=== PATIENT | male | born 1980 | race Caucasian/White ===

== ENCOUNTER 2024-10-23 07:31 | Observation (INO) ==
--- NOTE | 2024-09-24 13:32 | PAT Medication Instructions ---
Medication Instructions Date of Service September 24, 2024 Home Medications multivitamin 1 tab PO DAILY turmeric 400 mg capsule 400 mg PO DAILY PRN STOP taking 2 weeks before surgery (or as soon as possible if surgery is within 2 weeks) turmeric 400 mg capsule 400 mg PO DAILY PRN DO NOT take the morning of surgery multivitamin 1 tab PO DAILY Other Notes NOTHING TO EAT OR DRINK AFTER MIDNIGHT. If you have any questions please call us at [phone] or [phone] or [phone] or [phone]
--- NOTE | 2024-09-30 11:11 | Anesthesiology Consultation ---
Date of Service September 30, 2024 Assessment & Plan (1) Encounter for pre-operative examination: Chart Review Chart Review: Acceptable Risk for Surgery and Patient seen in Pre Admission Testing Pt currently scheduled as 23 hours observation. If surgeon decides to change patient to Same Day Joint, patient would be acceptable risk for BRIANNA, pending patient is motivated, has good support and surgeon's office completes Same Day Joint Program preop requirements. Per PAT appt on 09/30/24, no recent illness/disease exposures, illness related symptoms, or recent illness/disease positive tests. Will leave to surgeon's discretion if preop Covid testing needed Teaching & Discussion Pre-Anesthesia Teaching/Discussion Notes: Instructed NPO after midnight before surgery,except medications with 15 cc of water. Medication instructions provided according to the PAT guidelines. History Surgery Operation Date: 10/23/24 10:00 Proposed Procedures p Left Anterior Total Hip Arthroplasty - Santi Caballero DO Height/Weight Height: 6 ft 2 in Weight: 123.3 kg Allergies Allergy/AdvReac Type Severity Reaction Status Date / Time codeine Allergy Mild Vomiting Verified 09/23/24 13:16 Medications Home Medications Medication Instructions Recorded Confirmed Last Taken multivitamin 1 tab PO DAILY 09/23/24 09/23/24 Unknown turmeric 400 mg capsule 400 mg PO DAILY PRN Inflammation 09/23/24 09/23/24 Unknown Past Medical History Medical History Bilateral hip joint arthritis History of pericarditis 2005, had "walking pneumonia" admitted to [facility], observed, no intervention no issues since - no specialists needed; no repeat ECHO needed per patient Exercise / Class Metabolic Activity II 4-5 Yardwork/Stairs/Walk up hill (one flight of stairs- no chest pain or SOB ) Past Surgical History Surgical History Hx of adenoidectomy (1987) Hx of wisdom tooth extraction Past Anesthesia History No Hx of Anesthesia Complications and No Family Hx of Anesthesia Complications History of PONV No Hx of Motion Sickness and History of PONV (with wisdom teeth extraction (possibly due to codeine)) Social History Smoking Status: Former smoker Do You Dip or Chew Tobacco: No Smoking End Date: quit 15 years ago Hx Alcohol Use: Yes alcohol intake frequency: a few times a week Hx Substance Use: No substance use type: does not use Review of Systems - Hx of snoring- no witnessed apnea- no hx of sleep study Patient denies chest pain, shortness of breath, dyspnea on exertion, reflux, cough, wheezing, palpitations. No hx of seizures, stroke, MA. No hx of blood clots or blood transfusions Physical Exam Vital Signs VITALS BP 106/71 P 75 TEMP 98.5 SP02 98% RESP 16 Constitutional no acute distress ENMT Mouth: no TMJ clicking Thyromental Distance: > or= 3.5 Finger Breadths (3.5) Mallampati Class: III Neck neck extension not limited Respiratory normal respiratory effort; no respiratory distress Auscultation: lungs clear to auscultation bilaterally; no wheezes Cardiovascular Rate/Rhythm: regular rate and regular rhythm Heart Sounds: no murmur Vessels: no carotid bruit Musculoskeletal Spine: no pain with cervical ROM Extremities: extremities normal to inspection Psychiatric Orientation: alert Lab Results Anesthesia Preop Results Results Anesthesia Widget: WBC 5.32 K/ul (4.8-10.8) 09/30/24 Hgb 15.5 g/dl (14.0-18.0) 09/30/24 Hct 44.0 % (42.0-52.0) 09/30/24 Plt 210 K/uL (130-400) 09/30/24 Na 141 mmol/L (136-145) 09/30/24 K 4.2 mmol/L (3.5-5.1) 09/30/24 Cl 107 mmol/L (98-107) 09/30/24 CO2 29 mmol/L (21-32) 09/30/24 BUN 14 mg/dl (6-23) 09/30/24 Creat 0.96 mg/dl (0.6-1.4) 09/30/24 Glucose Level 108 mg/dl (70-99(Fasting)) H 09/30/24 PT 10.9 Seconds (9.0-12.0) 09/30/24 PTT 29 Seconds (21-31) 09/30/24 INR 1.0 (0.9-1.1) 09/30/24 Blood Type B Positive 09/30/24 Antibody Screen NEGATIVE 09/30/24 Testing Electrocardiogram Date: 09/30/24 Findings: + NSR @ (74bpm) Normal EKG per cardio Chest X-Ray Date: 09/30/24 Findings: + NAD
[~2024-10-23 07:31] MED LIST: ROPIVACAINE 0.5% 5 MG/ML 30 ML VIAL ONE
[2024-10-23] MEDS: dexAMETHasone**PF** 10 MG/ML VIAL IV SCH (07:54)
[2024-10-23] MEDS: GABAPENTIN 900 MG DOSE PO SCH (07:54)
[2024-10-23] MEDS: LR 60ML/HR IV SCH (07:54)
[2024-10-23] MEDS: ACETAMINOPHEN 500 MG TAB PO SCH ×2 (07:54→13:32)
[2024-10-23] MEDS: FAMOTIDINE 20 MG TAB PO SCH (07:54)
--- NOTE | 2024-10-23 07:59 | History & Physical Bridge Note ---
Date of Service October 23, 2024 History & Physical Bridge Note I have examined the patient, reviewed the History & Physical and in the interval since the performance of the History & Physical I have noted the following changes of clinical significance: no changes noted
[2024-10-23] MEDS ORDERED: ePHEDrine sulfate 50 MG/ML AMP IV PRN (08:08)
[2024-10-23] MEDS ORDERED: ATROPINE SULFATE 0.1 MG/ML 10ML SYR IV PRN (08:08)
[2024-10-23] MEDS ORDERED: HYDROmorphone INJ 1 MG/ML SYRINGE IV PRN (08:08)
[2024-10-23] MEDS ORDERED: ONDANSETRON INJ 2 MG/ML 2 ML VIAL IV PRN ×2 (08:08→12:15)
[2024-10-23] MEDS ORDERED: MIDAZOLAM HCL 1 MG/ML 2ML VIAL ONE (08:13)
[2024-10-23] MEDS: LR 500ML BOLUS, THEN 15ML/HR IV SCH (08:30)
[2024-10-23] MEDS ORDERED: KETAMINE HCL 10MG/ML SYR ONE (08:31)
[2024-10-23] MEDS ORDERED: PROPOFOL IV EMULSION 10 MG/ML 20 ML VIAL IV ONE ×2 (08:31→09:51)
--- OUTSIDE RECORDS SUMMARY | 2024-10-23 08:32 | External Medical Summary | Summary of Care ---
Author Name Unknown Organization [facility] Address [address] [facility] [address] Phone [phone] Care Team Providers Care Data Specialist Name Role Phone Unavailable Primary Care Provider Unavailabl e Reason for Visit * Reason Onset Date Comments Cold Symptoms Cold Symptoms 10/19/2024 Encounter Details Date Type Department Care Team (Late st Contact Info) Description 10/19/2024 10:15 AM [facility] Convenient Care Visit [facility] [address] [place] [address] Jonathon Christopher PA-C [address] [place] [address] Acute URI* Allergies No known active allergiesdocumented as of this encounter (statuses as of 10/19/2024) Medications Benzonatate 100 MG Oral Capsule Take 1 Capsule by mouth 3 times a day as needed for Cough. 30 Capsule 1 09/08/2024 Active documented as of this encounter (statuses as of 10/19/2024) Active Problems Problem Noted Date Diagnosed Date Exposure to pneumonia 09/08/2024 Viral URI with cough 09/08/2024 Chronic low back pain without sciatica 3 Chronic pain of right knee 04/10/2023 Screening for diabetes mellitus 02/02/2013 documented as of this encounter (statuses as of 10/19/2024) Resolved Problems Problem Noted Date Diagnosed Date Resolved Date History of 2019 novel fisher virus disease (COVID-19) 09/12/2021 04/03/2023 Migraine with aura 02/02/2013 Overview (02/02/2013): 01/2013 1st time documented as of this encounter (statuses as of 10/19/2024) Immunizations Name Administration Dates Next Due TDAP (age 10 and older)(Boostrix) 02/02/2013 documented as of this encounter Social History Tobacco Use Types Packs/Day Years Used Date Smoking Tobacco: Former Cigarettes 0.5 4 0 03/21/2004 - 03/21/2008 Smokeless Tobacco: Never Alcohol Use Standard Drinks/Week Comments Yes 2.5 (1 standard drink = 0.6 oz p ure alcohol) per week Hunger Vital Sign Answer Date Recorded Within the past 12 months, y ou worried that your food would run out before you got the money to buy more. Patient declined Within the past 12 months, t he food you bought just didn't last and you didn't have money to get more. Patient declined Childcare Answer Date Recorded Do you feel overwhelmed with taking care of a child, family member or friend? No 04/09/2023 Does your family need help f inding childcare? (Household - for ages 0-17 years) Not on file 04/09/2023 Clothing Answer Date Recorded Have you been unable to get clothing when it was really needed? No 04/09/2023 Is your family able to get c lothes or diapers when needed? (Household - for ages 0-17 years) Not on file 04/09/2023 Personal Safety Answer Date Recorded Do you feel unsafe or have concerns for your saf ety? No 04/09/2023 Do you have concerns for you r family's safety? (Household - for ages 0-17 years) Not on file 04/09/2023 Utilities Answer Date Recorded Do you have trouble paying y our heating, water, or electric bill? No 04/09/2023 Is your family able to pay t he heat, water, or electric bill? (Household - for ages 0-17 years) Not on file 04/09/2023 Does your family have access to good internet? (Household - for ages 0-17 years) Not on file 04/09/2023 Employment Status Answer Date Recorded Are you unemployed or without regular income? No 04/09/2023 Does the household have a re gular source of income? (Household - for ages 0-17 years) Not on file 04/09/2023 Social Connections Answer Date Recorded How often do you feel lonely or isolated from th ose around you? Never 04/09/2023 Financial Resource Strain Answer Date R ecorded Do you have any trouble payi ng for your medications, or do you think you might in the future? No 04/09/2023 Does your family have troubl e paying for medicine? (Household - for ages 0-17 years) Not on file 04/09/2023 Transportation Needs Answer Date Record ed READ ONLY Do you have troubl e getting a ride to medical visits or work? Never True 04/09/2023 Does your family have a hard time getting a ride to doctors visits? (Household - for ages 0-17 years) Not on file 04/09/2023 Has lack of transportation k ept you from medical appointments, meetings, work, or from getting things needed for daily living? Check all that apply. (Adult - for ages 18 years and over) Not on file 04/09/2023 Do you (or your family) have trouble finding or paying for a ride (transportation)? (Household - for ages 0-17 years) Not on file 04/09/2023 Housing Stability Answer Date Recorded Do you currently live in a s helter or have no steady place to sleep at night? No 04/09/2023 READ ONLY Do you think you a re at risk of becoming homeless? No 04/09/2023 Does your family worry about paying for your home or becoming homeless? (Household - for ages 0-17 years) Not on file 0 04/09/2023 Are you homeless or worried that you might be in the future? (Adult - for ages 18 years and over) Not on file Are you (or your family) robert eless or worried that you might be in the future? (Household - for ages 0-17 years) Not on file Food Insecurity Answer Date Recorded Do you need food for this week? No 04/09/2023 Are you able to get enough f ood for your family? (Household - for ages 0-17 years) Not on file 04/09/2023 Does your family need food t his week? (Household - for ages 0-17 years) Not on file 04/09/2023 Do you always have enough fo od for your family? (Household - for ages 0-17 years) Not on file 04/09/2023 Education Answer Date Recorded What is the highest level of school you have completed or the highest degree you have received? 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 Not on file Not on file Not on f ile documented as of this encounter Last Filed Vital Signs Vital Sign Reading Time Taken Comments Blood Pressure 108/84 10/19/2024 10:26 AM EST Pulse 82 10/19/2024 10:26 AM EST Temperature 36.7 C (98.1 F) 10/19/2024 1 0:26 AM EST Respiratory Rate 18 10/19/2024 10:2 6 AM EST Oxygen Saturation 97% 10/19/2024 10: 26 AM EST Inhaled Oxygen Concentration - - Weight 125.7 kg (277 lb 3.2 oz) 024 10:26 AM EST Height 188 cm (6' 2") 10/19/2024 10:26 AM EST Body Mass Index 35.59 10/19/2024 10:26 AM EST documented in this encounter Patient Instructions * Patient Instructions* Jonathon Christopher PA-C - 10/19/2024 10:47 AM EST Start a daily nasal spray such as Flonase, Nasacort, OR Nasonex. They work best if used consistently. In addition to one of these medicated nasal sprays use saline nasal spray to avoid dryness and thinout mucous Over the Counter (OTC) antihistamine (claritin, zyrtec, xyzal or jackson) can also be helpful for sinus symptoms. OTC decongestants: Sudafed, Mucinex-D (may have to get from behind pharmacy counter; you have to show your ID) can be used for nasal/sinus congestion for just a few days. If you have high blood pressure, you can use Coricidin. OTC cough suppressants as needed, including delsym, robitussin, cough drops, honey. Continue supportive measures: Increase clear, non-sugary fluid intake. Get plenty of rest Use a cool mist vaporizer or humidifier daily and you can take hot showers for steam therapy. Do warm salt water gargles and/or chloraseptic throat spray, throat lozenges (Cepacol) for any sorethroat. Honey, if not concerned about diabetes or elevated blood sugar levels, can also be very helpful forsorethroat. You may also use ibuprofen or acetaminophen OTC for relief of pain or fevers. If you had a negative rapid strep test, we will inform you if your PCR ("the send out") comes back positive, and start you on antibiotics. Otherwise, you may assume the PCR was also negative. If you had a viral swab (e.g. COVID, Flu, RSV, or otherwise), we will notify you if you test positive. If you do not hear from us, assume your test was negative. Follow up with PCP or return if no improvement in a week, or sooner if worse. Go to the ED if any severe symptoms appear acutely documented in this encounter Progress Notes * Jonathon Christopher PA-C - 10/19/2024 10:42 AM EST Nursing Notes: Nba Oseguera, SIDING ME[employer]IC 10/19/24 1028 Signed Joshua Gavin is a 44 year old male who presents to walk-in clinic today complaining of Chief Complaint Patient presents with Cold Symptoms Brief history:pt is present with congestion, drainage in back of throat, productive cough. Pt states getting hip replaced soon Onset/duration: 2x days. OTC treatments tried:sinus medication Effectiveness: has helped a little bit Patient is accompanied by self for today's visit. Joshua Gavin is a 44 year old male who presents with upper respiratory symptoms for 2 day(s) Patient was accompanied by Self. HPI Severity of Symptoms: Moderate Modifying Factors (what was done since onset of symptoms): see nurse note Timing (how often does it occur): constant Quality (feels like): feeling a little better Other associated Signs and Symptoms: nc, rhinorrhea, pnd, st. Reports cough that is mostly dry, but had some production last night. Denies sob, wheezing, cp, palp, n/v/d/c. Denies f/s/ch, Reports malaise, fatigue. Has hip replacement scheduled for Fri ROS See HPI HISTORY Past Medical History: Diagnosis Date History of 2019 novel coronavirus disease (COVID-19) 09/12/2021 Pericarditis 2006 Past Surgical History: Procedure Laterality Date DENTAL SURGERY PROCEDURE NEC 18YO Social History Tobacco Use Smoking status: Former Current packs/day: 0.00 Average packs/day: 0.5 packs/day for 4.0 years (2.0 ttl pk-yrs) Types: Cigarettes Start date: 03/21/2004 Quit date: 03/21/2008 Years since quittin.5 Smokeless tobacco: Never Substance Use Topics Alcohol use: Yes Alcohol/week: 2.5 standard drinks of alcohol Types: 3 12 oz of beer per week Comment: per week Vaping/E-Cigarette Use Vaping/E-Cigarette Use Never User Vaping/E-Cigarette Substances Vaping/E-Cigarette Devices Current Outpatient Medications Medication Sig Dispense Refill Benzonatate 100 MG Oral Capsule Take 1 Capsule by mouth 3 times a day as needed for Cough. 30 Capsule 1 No current facility-administered medications for this visit. Review of patient's allergies indicates: No Known Allergies Family History Problem Relation Name Age of Onset Hypertension Father Other (nikos) Father No Known Problems Brother Cancer Grandmother (Maternal) 75 Brain Tumor No Known Problems Grandfather (Maternal) Emphysema Grandmother (Paternal) Cancer Grandfather (Paternal) 75 COlon No Known Problems Son OBJECTIVE BP 108/84 | Pulse 82 | Temp 36.7 C (98.1 F) (Tympanic) | Resp 18 | Ht 1.88 m (6' 2") | Wt 125.7kg (277 lb 3.2 oz) | SpO2 97% | BMI 35.59 kg/m | BSA 2.56 m Wt Readings from Last 1 Encounters: 10/19/24 125.7 kg (277 lb 3.2 oz) General Appearance: awake, alert, no apparent distress HEENT: perrl and eomi tms - clear, normal light reflex, no erythema oral pharynx clear, mucus membranes moist No sinus tenderness or facial pain to percussion + turbinate engorgement and discharge Neck: normal, supple, no adenopathy Respiratory: clear to auscultation, no rhonchi, no wheezes, and no crackles Heart: regular rate, regular rhythm, no murmurs , no rubs, and no gallops Skin: skin color, texture, turgor are normal, no rashes or significant lesions Patient Instructions Start a daily nasal spray such as Flonase, Nasacort, OR Nasonex. They work best if used consistently. In addition to one of these medicated nasal sprays use saline nasal spray to avoid dryness and thinout mucous Over the Counter (OTC) antihistamine (claritin, zyrtec, xyzal or jackson) can also be helpful for sinus symptoms. OTC decongestants: Sudafed, Mucinex-D (may have to get from behind pharmacy counter; you have to show your ID) can be used for nasal/sinus congestion for just a few days. If you have high blood pressure, you can use Coricidin. OTC cough suppressants as needed, including delsym, robitussin, cough drops, honey. Continue supportive measures: Increase clear, non-sugary fluid intake. Get plenty of rest Use a cool mist vaporizer or humidifier daily and you can take hot showers for steam therapy. Do warm salt water gargles and/or chloraseptic throat spray, throat lozenges (Cepacol) for any sorethroat. Honey, if not concerned about diabetes or elevated blood sugar levels, can also be very helpful forsorethroat. You may also use ibuprofen or acetaminophen OTC for relief of pain or fevers. If you had a negative rapid strep test, we will inform you if your PCR ("the send out") comes back positive, and start you on antibiotics. Otherwise, you may assume the PCR was also negative. If you had a viral swab (e.g. COVID, Flu, RSV, or otherwise), we will notify you if you test positive. If you do not hear from us, assume your test was negative. Follow up with PCP or return if no improvement in a week, or sooner if worse. Go to the ED if any severe symptoms appear acutely ASSESSMENT AND PLAN Acute URI (Primary) - INFLUENZA A/B RSV SARS-COV2,PCR Consistent with viral Will r/o flu. If pos, will start tamflu as procedure coming end of week. Follow-up: Return if symptoms worsen or fail to improve. | Check-out note: If symtoms worsen or fail to improve Patient goals for plan of care were discussed Jonathon Christopher PA-C [address] [address] documented in this encounter Nursing Notes * Nba Oseguera CMA - 10/19/2024 10:25 AM EST Joshua Gavin is a 44 year old male who presents to walk-in clinic today complaining of Chief Complaint Patient presents with Cold Symptoms Brief history:pt is present with congestion, drainage in back of throat, productive cough. Pt states getting hip replaced soon Onset/duration: 2x days. OTC treatments tried:sinus medication Effectiveness: has helped a little bit Patient is accompanied by self for today's visit. documented in this encounter Plan of Treatment Pending Results Name Type Priority Associated Diagnoses Date /Time INFLUENZA A/B RSV SARS-COV2,PCR Lab Routine Acute URI 10/19/2024 10:43 AM EST Health Maintenance Due Date Last Done Comments HIV Screening 1997 Hepatitis C Screening 02/12/2000 Hepatitis B Vaccine (1 of 3 - 19+ 3-dose series) 2001 Depression Screening 08/22/2017 08/22/2016 DTap/Tdap Vaccines (2 - Td o r Tdap) 02/02/2023 02/02/2013 COVID-19 Vaccine (2 - 2023-2 5 season) 2024 01/27/2021 Influenza Vaccine (FLU shot) (#1) 2024 Lipid Panel 07/17/2028 07/17/2023 HPV (Gardasil) Vaccine Aged Out No lo nger eligible based on patient's age to complete this topic MENINGOCOCCAL (MENACTRA/MENVEO) Aged Out No longer eligible based on patient's age to complete this topic Pneumococcal Vaccine: Pediat rics (0 to 5 Years) and At-Risk Patients (6 to 18 Years and 19+ Years) Aged Out No longer eligible b ased on patient's age to complete this topic documented as of this encounter Medical Devices Not on filedocumented as of this encounter Visit Diagnoses Diagnosis Acute URI- Primary Acute upper respiratory infections of unspecified site documented in this encounter
--- OUTSIDE RECORDS SUMMARY | 2024-10-23 08:32 | External Medical Summary ---
Author Name Unknown Address Unknown Organization [id number]:[facility] - [address] [facility] [address] Laboratory Report Ordering Provider Test Date Status JUDAH JORDAN 10/19/2024 10:43:16 Final Observation Date Value Abnormality Reference (Units ) Status SARS Coronavirus 2 10/19/2024 10:43:16 Negative N egative Final No SARS-CoV2 Coronavirus RNA detected by PCR (amplified probe).
This automated test was developed and its performance characteristics determined by [facility]. It has not been cleared or approved by the U.S. Food and Drug Administration (FDA). FDA does not require this test to go thru premarket FDA review. This test is used for clinical purposes. It should not be regarded as investigational or for research. This laboratory is certified under the Clinical Laboratory Improvement Amendments (CLIA) as qualified to perform high complexity clinical laboratory testing.

This test is a nucleic acid amplification test (NAAT), a reverse transcriptase polymerase chain reaction (RT-PCR) test, or a Centers for Disease Control-acceptable equivalent. The test is performed in a high complexity Clinical Laboratory Improvement Amendments-(CLIA) certified laboratory. The test is acceptable for SARS-CoV-2 diagnosis, surveillance, and travel within the [place] and to most countries. Please check with local testing authorities about requirements before travel.

The validation of bronchial specimens, tracheal aspirates, and sputum for this assay was developed and performance characteristics determined by [facility]. The validation of alternate specimen types has not been cleared or approved by the U.S. Food and Drug Administration (FDA). It has been determined that such clearance or approval is not necessary. Influenza virus A RNA [Prese nce] in Specimen by [facility] with probe detection 10/19/2024 10:43:16 Negative Negative Final No Influenza A RNA detected by PCR (amplified probe) Influenza virus B RNA [Prese nce] in Specimen by [facility] with probe detection 10/19/2024 10:43:16 Negative Negative Final No Influenza B RNA detected by PCR (amplified probe) Respiratory syncytial virus RNA [Identifier] in Specimen by [facility] with probe detection 10/19/2024 10:43:16 Negative Negative Final No Respiratory Syncytial Vir us RNA detected by PCR (amplified probe) Performing Location [facility] [place] [address] [facility] [address]
[2024-10-23] MEDS: TRANEXAMIC ACID 1,000 MG **IV Pre-op IV SCH (08:37)
[2024-10-23] MEDS: ceFAZolin 3000MG 3,000 MG/72.5 ML BAG IV SCH (08:53)
[2024-10-23] MEDS ORDERED: LIDOCAINE 2% 2 ML VIAL/AMP(20MG/ML) INFIL ONE ×2 (08:59→09:08)
[2024-10-23] MEDS ORDERED: GLYCOPYRROLATE 0.2 MG/ML VIAL ONE ×2 (09:03→09:52)
[2024-10-23] MEDS: ROPIV 0.5% 246mg, Ketorolac 30mg, EPINEPHrine 0.5mg in NSS INFIL SCH (09:30)
[2024-10-23] MEDS: ORTHO JOINT ANESTHETIC ONE (09:40)
--- NOTE | 2024-10-23 10:10 | Operative Report ---
PG Post Operative Report Pre & Post Diagnosis Operation Date: 10/23/24 09:00 Pre-Op Diagnosis: Left Hip Osteoarthritis Post-Op Diagnosis: Left Hip Osteoarthritis I identified the patient and participated in the time-out.: Yes Procedure Operation Date: 10/23/24 09:00 Actual Procedures p Left Anterior Total Hip Arthroplasty(Left) - Santi Caballero DO Surgeon Santi Caballero DO Accountant Bookkeeper Marty Canseco PA-C Estimated Blood Loss 200 Findings Consistent with Post-Op Diagnosis Specimens Left femoral head Description of Procedure Implants used I used a ZimmerBiomet total hip arthroplasty system with a size 6 standard Avenir Complete stem, a 56 mm G7 cup with a 25mm screw, an E1 polyethylene liner, a 40 mm ceramic head with a 0 neck. Joshua arrived at the hospital for the above procedure. He was seen in the preoperative holding area and the operative extremity was identified and signed. He was given a spinal anesthetic, a preoperative antibiotic, and TXA. He was then taken back to the operating room and laid on the table in the supine position. He was given basic sedation. The operative leg was secured to a ristst leg positioner. The hip was then prepped and draped in sterile fashion. A timeout was done and the patient and the operative extremity was properly identified. An anterior approach was used. Dissection was taken down through the fascia and the tensor muscle belly was retracted laterally and the rectus was retracted medially. The circumflex vessels were identified and ligated. The capsule was then incised and tagged for later repair. The femoral neck was then cut and the femoral head was removed. The acetabulum was exposed. Time was spent doing a complete circumferential labral release. Sequential reaming of the acetabulum up to a size 56 reamer was done. Final reamings were done under fluoroscopy to ensure appropriate version. A Biomet 56 mm G7 cup was then impacted into place. A single 25 mm screw was placed. The E1 polyethylene liner was then snapped into place. Surrounding soft tissues were then injected with 100 cc of an orthopedic pain control cocktail. The proximal femur was then exposed. Sequential broaching up to a size 6 broach was done. Off that broach a size 40 head with a 0 neck was trialed. The hip was reduced and fluoroscopic images showed anatomic alignment of the implants in acceptable length. The broach was removed. The final size 6 standard offset Avenir Complete stem was then impacted into place. A ceramic 40 mm head with a 0 neck was then impacted onto the stem and the hip was reduced. Final fluoroscopic images showed anatomic alignment of the hip. The capsule was then closed with #1 Vicryl suture. A dilute betadyne lavage was then done for 3 minutes. The joint was then irrigated with normal saline solution. The fascia was closed with #1 PDS suture. Skin was closed with 2-0 Vicryl, darvin, and a Silverlon dressing. He was then transferred to a hospital bed and taken to the post anesthesia care unit in stable condition. He tolerated the procedure well. Marty Canseco PA-C, was present for the entire procedure. He was critical for patient positioning, prepping, draping, retraction exposure, wound closure and application of sterile dressing. I attest to the content of the Intraoperative Record and any orders documented therein. Any exceptions are noted below.
[2024-10-23] MEDS: TRANEXAMIC ACID 1,000 MG **IV Intra-op IV SCH (10:11)
[2024-10-23] MEDS: fentaNYL citrate PF 100 MCG/2 ML VIAL IV PRN (10:48)
--- NOTE | 2024-10-23 10:53 | Fluoroscopy Report ---
FL hip LT 1V CLINICAL HISTORY: LEFT ANTERIOR HIP TECHNIQUE: 1 views were obtained with the C-arm in the OR with the above procedure. Total fluoroscopy time was 44.4 seconds. Radiation dose was 4.23 mGy. Comparison: Comparison is made to hip arthroplasty 06/11/2024 FINDINGS/IMPRESSION: Intraoperative images were obtained of left hip arthroplasty. Please correlate with intraoperative fluoroscopy and operative report. ACT 112: Negative or not required by law. Electronically signed by: Manav Montelongo M.D. 10/23/2024 10:52 AM
--- NOTE | 2024-10-23 11:18 | XRay Report ---
XR hip 1V LT w pelvis CLINICAL HISTORY: IN PACU - Post Surgical TECHNIQUE: 1 view of the left hip and single frontal view of the pelvis were obtained. Comparison: None available at the time of this dictation. FINDINGS: Patient is status post total hip arthroplasty with expected postsurgical changes including soft tissu e swelling and subcutaneous emphysema. Right hip osteoarthritis is seen. IMPRESSION: Expected postoperative appearance status post placement of total hip arthroplasty. ACT 112: Negative or not required by law. Electronically signed by: Manav Montelongo M.D. 10/23/2024 11:16 AM
--- NOTE | 2024-10-23 11:40 | Anesthesiology Progress Note ---
Date of Service October 23, 2024 Anesthesia Post Procedure Vital Signs Vital Signs: Temp Pulse Pulse Resp BP Pulse Ox O2 Del Method 10/23/24 11:25 74 15 111/65 98 Room Air 10/23/24 11:15 36.4 C L 78 19 110/71 97 Room Air 10/23/24 11:05 86 12 111/69 100 Room Air 10/23/24 10:55 83 17 118/80 97 Room Air 10/23/24 10:45 91 H 16 106/82 95 Oxymask 10/23/24 10:36 36.8 C 89 15 102/67 96 Oxymask 10/23/24 07:49 36.9 C 79 18 113/82 98 Room Air O2 Flow Rate 10/23/24 11:25 10/23/24 11:15 10/23/24 11:05 10/23/24 10:55 10/23/24 10:45 7 10/23/24 10:36 7 10/23/24 07:49 Pain Intensity Back: Pain Intensity: 4 Transfer of Care Handoff Completed per policy Notes Mental Status: alert / awake / arousable and participated in evaluation Patient Amnestic to Procedure: Yes Nausea / Vomiting: adequately controlled Pain: adequately controlled Airway Patency, RR, SpO2: stable & adequate BP & HR: stable & adequate Hydration State: stable & adequate Neuraxial Anesthesia: was administered and sensory block is resolving Anesthetic Complications: no major complications apparent and Pt Satisfied with anesthetic care
[2024-10-23] MEDS ORDERED: NALOXONE HCL 0.4 MG/1 ML VIAL/CARP IV PRN (12:15)
[2024-10-23] MEDS ORDERED: oxyCODONE HCL IR 5 MG TAB (IMMEDIATE RELEASE) PO PRN (12:15)
[2024-10-23] MEDS ORDERED: bisacodyL 10 MG SUPP PR PRN (12:15)
[2024-10-23] MEDS ORDERED: HYDROmorphone INJ 0.5 MG/0.5 ML SYR IV PRN (12:15)
[2024-10-23] MEDS ORDERED: METOCLOPRAMIDE HCL INJ 5 MG/ML 2 ML VIAL IV PRN (12:15)
[2024-10-23] MEDS ORDERED: traMADol HCL 50 MG TABLET PO PRN (12:15)
[2024-10-23] MEDS ORDERED: MAGNESIUM HYDROXIDE SUSP 30 ML UDC PO PRN (12:15)
[2024-10-23] MEDS: KETOROLAC TROMETHAMINE 15 MG/ML VIAL IV SCH (13:32)
[2024-10-23] MEDS: ceFAZolin 1000MG 1,000 MG/7.5 ML SYR IV SCH (16:51)
[2024-10-23 19:22] VITALS: RESP 18
[2024-10-23] MEDS: ASPIRIN 81 MG ECTAB PO SCH (20:44)
[2024-10-23] MEDS: SENNA 8.6 MG TAB PO SCH (20:44)
[2024-10-23] MEDS: DOCUSATE SODIUM 100 MG CAP PO SCH (20:44)
[2024-10-23 23:16] VITALS: TEMP 97.7
[2024-10-24 07:16] VITALS: BP 104/70; PULSE 81; O2SAT 98
--- NOTE | 2024-10-24 08:18 | Discharge Summary ---
Date of Service October 24, 2024 Principal Diagnosis Same as "Discharge Diagnosis" noted below under Discharge Instructions. Discharge Exam On physical exam of the left hip, the dressing is clean and dry. His leg is out full extension. He has active dorsiflexion plantarflexion of his left ankle.. Discharge Data Procedures Performed Operation Date: 10/23/24 09:00 Actual Procedures p Left Anterior Total Hip Arthroplasty(Left) - Santi Caballero DO Ordered Studies 10/23/24 09:00 FL hip LT 1V Routine Hospital Course (1) Status post left hip replacement: On October 23, 2024 Joshua arrived at [facility] and underwent a left hip replacement without complication. He had a spinal anesthetic. Postoperatively he was started on aspirin for DVT prophylaxis and transferred to the general orthopedic floors. His hospital course was uneventful. On postop day #1, his vital signs were stable and his pain was well-controlled. He was able to participate well with physical therapy doing ambulation and range of motion exercises. He was then discharged to home. He will follow-up orthopedics in 2 weeks. PG Care Time/CCT Total # of Minutes Spent Total Time Spent with Patient: Total time spent is greater than 50% in coordination of care (as documented) at patient's floor/unit and/or counseling patient: Discharge Plan Discharge Items Patient Disposition: Home - Self-Care Reason For Visit: Left Hip Arthritis Discharge Diagnosis: Left hip replacement Activity: Per Instructions section Non-emergency contact: Surgeon Call non-emergency contact if: your wound has increased redness and your wound has increased drainage Follow-up/Referrals: Amaya Trinidad CRNP [Primary Care Provider] - Diet: Regular Addtl Attending Provider Instructions: Activity and Therapy Recommendations: * If you are using [facility] then therapy will be provided at your home until they feel you have accomplished all of your goals. * If you are using [facility] then Physical Therapy will be provided until they feel you are ready to start Outpatient Physical Therapy. * If you are not using home therapy then Outpatient Physical Therapy should start about 3-5 days from your day of surgery. Therapy will last about 6-10 weeks * You were shown a series of exercises in the hospital. Do these exercises three times each day including the exercises you were shown in physical therapy. * Get up and walk several times each day.~ For the first four weeks, try not to stand or walk for more than one hour at a time. If you do stand or walk for more than one hour, you will not hurt anything, but your leg will likely swell.~~ * As you feel comfortable, you may change from the walker or crutches to a cane and~then to independent walking. Medications: * Narcotic You will likely be sent home from the hospital with a prescription for the narcotic pain medication that worked best throughout your stay. * Cefadroxil -take the antibiotic twice a day for 10 days to help prevent infection. * Aspirin Most patients will be required to take Aspirin 81mg twice a day for 6 weeks after surgery. This is obtained [id number] and a prescription is not necessary. * Other medications may be prescribed for specific circumstances. If you have any questions, please call the office at . * Resume previous home medications unless otherwise instructed TEDs/Elastic Stockings: The white elastic stockings help limit swelling and prevent blood clots from forming in your legs. The more you wear them, the more they work. Wear them for six weeks. Dressing Care: Leave the Silverlon dressing in place for 7 days. After 7 days you may remove the dressing. If the incision is not draining then you may leave the darvin open to air. If there is a little bit of drainage or if the darvin are getting stuck on your clothing then cover the incision with a dry dressing. The darvin will be removed at your 2 week follow-up appointment. Showering: You may shower with the Silverlon dressing in place. Do not let the shower spray hit the dressing directly. Pat the Silverlon dressing dry. If the dressing becomes wet underneath, then simply remove the dressing. Keep the incision dry until you are 7 days out from the day of surgery. After 7 days you may remove the Silverlon dressing and shower with the darvin exposed. Let soapy water run over the darvin and pat them dry. Do not scrub or soak the incision. Diet: You may resume your previous diet. Things To Watch For: * Drainage from the incision site that occurs more than one week after your surgery. * Increased redness at the incision site. * Fever above 102 degrees Fahrenheit. * Unusual chest pain or shortness of breath. * Call [facility] at with any of the above problems Follow-Up Visit: Follow-up with Dr. Caballero's office 2-3 weeks after your day of surgery. We will remove your darvin and answer any questions. If you have any additional questions or concerns, Dr Caballero is usually in the office at the same time and will be available An appointment was probably scheduled when you signed-up for surgery in the office. If you have any questions call Office Instructions: More detailed instructions as well as Frequently Asked Questions were provided in a folder by our office when you signed-up for surgery. Please review these instructions when you get home. If you have any further questions or concerns, please feel free to call the office at [phone] Pending Studies at Discharge: No Stand-Alone Forms: [facility], Smoking Cessation Medications and DC Order Prescriptions: New cefadroxil 500 mg capsule 500 mg PO BID 10 Days Qty: 20 0RF oxycodone 5 mg tablet 5 mg PO Q6H PRN (Reason: pain) Qty: 30 0RF aspirin 81 mg Tablet,Delayed Release (Dr/Ec) 81 mg PO BID 42 Days Qty: 84 0RF Continued multivitamin Tablet 1 tab PO DAILY turmeric 400 mg Capsule 400 mg PO DAILY PRN (Reason: Inflammation) Discharge Orders: Discharge Order (Routine); Ordered 10/24/24 Ordered By: Santi Caballero Admission Data Admit Date/Time: 10/23/24 10:39 Attending Provider: Santi Caballero Admit Provider: Santi Caballero Primary Care Provider: Amaya Trinidad
--- NOTE | 2024-10-24 08:18 | Orthopedic Progress Note ---
Date of Service October 24, 2024 Assessment & Plan (1) Status post left hip replacement: Overall he is doing very well. He is not having much pain in the left hip. He will be seen by physical therapy today for ambulation and range of motion exercises. He is on aspirin for DVT prophylaxis. He can be discharged to home later today. He will follow-up with orthopedics in 2 weeks. Scarlet Lewis was seen and examined at bedside this morning. Overall he is doing very well. He is not having much pain in the left hip. He has been up and ambulating to the bathroom. He has no complaints.. Review of Systems All systems reviewed & are unremarkable except as noted in HPI & below. Physical Exam On physical exam of the left hip, the dressing is clean and dry. His leg is out full extension. He has active dorsiflexion plantarflexion of his left ankle.. Results & Data Results & Data Laboratory Results . Diagnostic Findings Postoperative x-rays of the left hip show the prosthesis to be in anatomic alignment without any evidence of fracture complication, or loosening.. PG Care Time/CCT Total # of Minutes Spent Total Time Spent with Patient: Total time spent is greater than 50% in coordination of care (as documented) at patient's floor/unit and/or counseling patient: Coding Level of Care Code 08051 Post Operative Follow-Up Diagnoses Status post left hip replacement Z96.642
[2024-10-24] MEDS: MULTIVITAMIN TAB PO SCH (08:43)
[2024-10-24] MEDS: dexAMETHasone 4 MG TAB PO SCH (08:43)
== END 2024-10-24 10:37 | disposition home or self-care (01) ==
LOC: 3E 07:31 → ASU 07:31

== ENCOUNTER 2025-01-29 05:41 | Observation (INO) ==
--- NOTE | 2025-01-19 13:09 | Anesthesiology Consultation ---
Date of Service January 19, 2025 Assessment & Plan (1) Encounter for pre-operative examination: - Infectious disease screening: Per assessment on 01/19/25- No known recent infectious disease contacts or current infectious disease symptoms. - Outpatient joint assessment: Pt currently scheduled for inpatient pathway. If surgeon requests review for outpatient joint pathway, patient is an acceptable candidate for outpatient joint program from anesthesia standpoint pending surgeon's office assessment that patient is motivated, has good support and completes Same Day Joint Program preop requirements. - S/P Left anterior BRIANNA (10/23/24): SAB at [facility]. No issues noted per post-op anesthesia progress note. Chart Review Chart Review: Acceptable Risk for Surgery and Patient NOT seen in Pre Admission Testing History Surgery Operation Date: 01/29/25 12:00 Proposed Procedures p Right Anterior Total Hip Arthroplasty - Santi Caballero DO Height/Weight Height: 6 ft 2 in Weight: 122.47 kg Allergies Allergy/AdvReac Type Severity Reaction Status Date / Time codeine Allergy Mild Vomiting Verified 01/19/25 12:13 Medications Home Medications Medication Instructions Recorded Confirmed Last Taken multivitamin 1 tab PO DAILY 09/23/24 01/19/25 Unknown turmeric 400 mg capsule 400 mg PO DAILY PRN Inflammation 09/23/24 01/19/25 Unknown Past Medical History Medical History (Updated 01/19/25 @ 13:06 by Christianne Perez) Bilateral hip joint arthritis left hip replaced 10/23/24 History of pericarditis 2005, had "walking pneumonia" admitted to [facility], observed, no intervention no issues since - no specialists needed; no repeat ECHO needed per patient Past Surgical History Surgical History (Updated 01/19/25 @ 13:06 by Christianne Perez) History of total left hip arthroplasty 10/23/24, reverese total Hx of adenoidectomy (1987) Hx of wisdom tooth extraction Social History Smoking Status: Former smoker Do You Dip or Chew Tobacco: No Smoking End Date: 20 years ago Hx Alcohol Use: Yes Alcohol type: beer alcohol intake frequency: a few times a week Alcohol Intake Frequency Comment: 1x/week Hx Substance Use: No substance use type: does not use Lab Results Anesthesia Preop Results Results Anesthesia Widget: WBC 5.20 K/ul (4.8-10.8) 01/14/25 Hgb 15.1 g/dl (14.0-18.0) 01/14/25 Hct 45.0 % (42.0-52.0) 01/14/25 Plt 197 K/uL (130-400) 01/14/25 Na 139 mmol/L (136-145) 01/14/25 K 4.2 mmol/L (3.5-5.1) 01/14/25 Cl 107 mmol/L (98-107) 01/14/25 CO2 30 mmol/L (21-32) 01/14/25 BUN 12 mg/dl (6-23) 01/14/25 Creat 1.00 mg/dl (0.6-1.4) 01/14/25 Glucose Level 99 mg/dl (70-99(Fasting)) 01/14/25 PT 10.6 Seconds (9.0-12.0) 01/14/25 PTT 29 Seconds (21-31) 01/14/25 INR 1.0 (0.9-1.1) 01/14/25 Blood Type B Positive 01/14/25 Antibody Screen NEGATIVE 01/14/25 Testing Electrocardiogram Date: 09/30/24 Findings: + NSR @ (74bpm) Normal EKG per cardio Chest X-Ray Date: 09/30/24 Findings: + NAD
--- NOTE | 2025-01-28 13:55 | History & Physical Report ---
Date of Service January 28, 2025 Assessment & Plan (1) Osteoarthritis of right hip: Will proceed with a right anterior total of arthroplasty. Postoperatively he will be started on aspirin for DVT prophylaxis and kept overnight in the hospital for postop medical management. [facility] plans [facility] upon [facility]. History of Present Illness Chief Complaint: Osteoarthritis of the right hip. Primary Care Provider: LEONORA Haile Joshua is a pleasant 44-year-old male who underwent a left hip replacement about 4 months ago. He has done very well with that. Unfortunately he is dealing with a lot of right hip pain. X-rays and clinical exam have been diagnostic for advanced osteoarthritis of the right hip. After failing conservative treatment, he has elected proceed with a right anterior total of arthroplasty.. Allergies Allergy/AdvReac Type Severity Reaction Status Date / Time codeine Allergy Mild Vomiting Verified 01/19/25 12:13 Home Medications Medication Instructions Recorded Confirmed Type multivitamin 1 tab PO DAILY 09/23/24 01/19/25 History turmeric 400 mg capsule 400 mg PO DAILY PRN Inflammation 09/23/24 01/19/25 History Past Med/Surg History Problem List (Updated 01/28/25 @ 13:54 by Santi Caballero DO) Osteoarthritis of right hip Encounter for pre-operative examination Bilateral hip joint arthritis Medical History History of pericarditis 2005, had "walking pneumonia" admitted to [facility], observed, no intervention no issues since - no specialists needed; no repeat ECHO needed per patient Bilateral hip joint arthritis left hip replaced 10/23/24 Surgical History History of total left hip arthroplasty 10/23/24, reverese total Hx of adenoidectomy (1987) Hx of wisdom tooth extraction Social History Smoking Status: Former smoker Tobacco Type: Cigarettes Smoking End Date: 20 years ago; Second Hand Exposure: Yes (hx as child); Do You Dip or Chew Tobacco: No; Tobacco Cessation Education Requested by Patient: No Hx Alcohol Use: Yes Alcohol type: beer Hx Substance Use: No Preferred Language: Sami Communication Ability: Effective Asp Web Developer Required: No Beliefs That Will Affect Care: None Current Living Situation: Spouse Other Information That Helps Us Care for You: No Feels Safe at Home: Yes Safety Concerns: Feels Safe At This Time Assistive Devices: Contacts and Glasses Review of Systems All systems reviewed & are unremarkable except as noted in HPI & below. Physical Exam On physical exam of the right hip, he has decreased range of motion. He has pain with forced internal and external rotation. All of his pain is located in the groin.. Constitutional WD/WN, vitals as above Eyes PERRL, conjunctivae normal, anicteric sclerae ENMT external ear and nose normal, oropharynx normal Neck trachea midline, no thyromegaly Respiratory normal respiratory effort Cardiovascular RRR, no murmur, no edema Gastrointestinal (Abdomen) normal bowel sounds, soft, nontender, no hepatosplenomegaly Psychiatric A+Ox3, euthymic affect Results & Data Results & Data Laboratory Results . Diagnostic Findings X-rays of the right hip show advanced osteoarthritis with joint space narrowing, osteophyte formation, and [id number] articulation. PG Care Time/CCT Total # of Minutes Spent Total Time Spent with Patient: Total time spent is greater than 50% in coordination of care (as documented) at patient's floor/unit and/or counseling patient: Coding Level of Care Code None Diagnoses Osteoarthritis of right hip M16.11
[2025-01-29] MEDS: LR 60ML/HR IV SCH (05:59)
[2025-01-29] MEDS: LR 500ML BOLUS, THEN 15ML/HR IV SCH (05:59)
[2025-01-29] MEDS: ACETAMINOPHEN 500 MG TAB PO SCH ×2 (06:00→14:36)
[2025-01-29] MEDS: dexAMETHasone**PF** 10 MG/ML VIAL IV SCH (06:00)
[2025-01-29] MEDS: GABAPENTIN 900 MG DOSE PO SCH (06:00)
[2025-01-29] MEDS: FAMOTIDINE 20 MG TAB PO SCH (06:00)
[2025-01-29] MEDS ORDERED: ceFAZolin 2000MG 2,000 MG/15 ML SYR IV SCH (06:00)
[2025-01-29] MEDS ORDERED: MIDAZOLAM HCL 1 MG/ML 2ML VIAL ONE (06:27)
[2025-01-29] MEDS ORDERED: BUPIVACAINE 0.5 % 5 MG/1 ML PF 10ML VIAL ONE (06:27)
[2025-01-29] MEDS ORDERED: fentaNYL citrate PF 100 MCG/2 ML VIAL ONE (06:28)
[2025-01-29] MEDS ORDERED: LIDOCAINE 2% 2 ML VIAL/AMP(20MG/ML) INFIL ONE (06:29)
[2025-01-29] MEDS ORDERED: ONDANSETRON INJ 2 MG/ML 2 ML VIAL ONE (06:30)
[2025-01-29] MEDS ORDERED: PROPOFOL IV EMULSION 10 MG/ML 20 ML VIAL IV ONE (06:30)
--- NOTE | 2025-01-29 06:32 | History & Physical Bridge Note ---
Date of Service January 29, 2025 History & Physical Bridge Note I have examined the patient, reviewed the History & Physical and in the interval since the performance of the History & Physical I have noted the following changes of clinical significance: no changes noted
[2025-01-29] MEDS: TRANEXAMIC ACID 1,000 MG **IV Pre-op IV SCH (06:54)
[2025-01-29] MEDS: ceFAZolin 3000MG 3,000 MG/72.5 ML BAG IV SCH (06:55)
[2025-01-29] MEDS ORDERED: ATROPINE SULFATE 0.1 MG/ML 10ML SYR IV PRN (07:01)
[2025-01-29] MEDS ORDERED: ONDANSETRON INJ 2 MG/ML 2 ML VIAL IV PRN ×2 (07:01→09:56)
[2025-01-29] MEDS ORDERED: ePHEDrine sulfate 50 MG/ML AMP IV PRN (07:01)
[2025-01-29] MEDS ORDERED: PROMETHAZINE HCL 6.25 MG in SODIUM CHLORIDE 0.9% 50 ML IV PRN (07:01)
[2025-01-29] MEDS ORDERED: fentaNYL citrate PF 100 MCG/2 ML VIAL IV PRN (07:01)
[2025-01-29] MEDS ORDERED: GLYCOPYRROLATE 0.2 MG/ML VIAL ONE (07:21)
[2025-01-29] MEDS: ROPIV 0.5% 246mg, Ketorolac 30mg, EPINEPHrine 0.5mg in NSS INFIL SCH (07:36)
[2025-01-29] MEDS: ORTHO JOINT ANESTHETIC ONE (07:36)
[2025-01-29] MEDS ORDERED: PHENYLEPHRINE 100MCG/ML 5ML SYR ONE (07:37)
[2025-01-29] MEDS ORDERED: PHENYLEPHRINE HCL 10 MG/ML VIAL ONE (07:37)
[2025-01-29] MEDS: TRANEXAMIC ACID 1,000 MG **IV Intra-op IV SCH (08:03)
--- NOTE | 2025-01-29 08:08 | Operative Report ---
PG Post Operative Report Pre & Post Diagnosis Operation Date: 01/29/25 07:00 Pre-Op Diagnosis: Right Hip Osteoarthritis Post-Op Diagnosis: Right Hip Osteoarthritis I identified the patient and participated in the time-out.: Yes Procedure Operation Date: 01/29/25 07:00 Actual Procedures p Right Anterior Total Hip Arthroplasty(Right) - Santi Caballero DO Surgeon Santi Caballero DO Podiatric Medicine Doctor Marty Canseco PA-C Estimated Blood Loss 200 Findings Consistent with Post-Op Diagnosis Specimens Right femoral head Description of Procedure Implants used I used a ZimmerBiomet total hip arthroplasty system with a size 6 standard offset Avenir Complete stem, a 56 mm G7 cup with a 25mm screw, an E1 polyethylene liner, a 40 mm ceramic head with a 0 neck. Joshua arrived at the hospital for the above procedure. He was seen in the preoperative holding area and the operative extremity was identified and signed. He was given a spinal anesthetic, a preoperative antibiotic, and TXA. He was then taken back to the operating room and laid on the table in the supine position. He was given basic sedation. The operative leg was secured to a Puristst leg positioner. The hip was then prepped and draped in sterile fashion. A timeout was done and the patient and the operative extremity was properly identified. An anterior approach was used. Dissection was taken down through the fascia and the tensor muscle belly was retracted laterally and the rectus was retracted medially. The circumflex vessels were identified and ligated. The capsule was then incised and tagged for later repair. The femoral neck was then cut and the femoral head was removed. The acetabulum was exposed. Time was spent doing a complete circumferential labral release. Sequential reaming of the acetabulum up to a size 55 reamer was done. Final reamings were done under fluoroscopy to ensure appropriate version. A Biomet 56 mm G7 cup was then impacted into place. A single 25 mm screw was placed. The E1 polyethylene liner was then snapped into place. Surrounding soft tissues were then injected with 100 cc of an orthopedic pain control cocktail. The proximal femur was then exposed. Sequential broaching up to a size 6 broach was done. Off that broach a size 40 head with a 0 neck was trialed. The hip was reduced and fluoroscopic images showed anatomic alignment of the implants in acceptable length. The broach was removed. The final size 6 standard offset Avenir Complete stem was then impacted into place. A ceramic 40 mm head with a 0 neck was then impacted onto the stem and the hip was reduced. Final fluoroscopic images showed anatomic alignment of the hip. The capsule was then closed with #1 Vicryl suture. A dilute betadyne lavage was then done for 3 minutes. The joint was then irrigated with normal saline solution. The fascia was closed with #1 PDS suture. Skin was closed with 2-0 Vicryl, darvin, and a Silverlon dressing. He was then transferred to a hospital bed and taken to the post anesthesia care unit in stable condition. He tolerated the procedure well. Marty Canseco PA-C, was present for the entire procedure. He was critical for patient positioning, prepping, draping, retraction exposure, wound closure and application of sterile dressing. I attest to the content of the Intraoperative Record and any orders documented therein. Any exceptions are noted below.
--- NOTE | 2025-01-29 09:11 | XRay Report ---
XR hip 1V RT w pelvis CLINICAL HISTORY: IN PACU - Post Surgical COMPARISON: 10/23/2024 FINDINGS: Bilateral hip prostheses show no hardware complication. There is expected soft tissue gas on the right and skin darvin are present. IMPRESSION: Unremarkable postoperative exam. ACT 112: Negative or not required by law. Electronically signed by: Gm Briseno M.D. 01/29/2025 9:10 AM
--- NOTE | 2025-01-29 09:33 | Anesthesiology Progress Note ---
Date of Service January 29, 2025 Anesthesia Post Procedure Vital Signs Vital Signs: Temp Pulse Pulse Resp BP Pulse Ox O2 Del Method 01/29/25 09:30 64 12 113/69 96 Room Air 01/29/25 09:20 73 16 112/71 95 Room Air 01/29/25 09:10 36.4 C L 89 18 118/63 94 Room Air 01/29/25 09:00 71 16 114/69 95 Room Air 01/29/25 08:50 83 16 132/64 99 Oxymask 01/29/25 08:40 80 15 116/65 99 Oxymask 01/29/25 08:31 36.2 C L 87 10 L 117/66 96 Oxymask 01/29/25 05:43 36.9 C 81 18 128/79 99 Room Air O2 Flow Rate 01/29/25 09:30 01/29/25 09:20 01/29/25 09:10 01/29/25 09:00 01/29/25 08:50 3 01/29/25 08:40 6 01/29/25 08:31 6 01/29/25 05:43 Transfer of Care Handoff Completed per policy Notes Mental Status: alert / awake / arousable Patient Amnestic to Procedure: Yes Nausea / Vomiting: adequately controlled Pain: adequately controlled Airway Patency, RR, SpO2: stable & adequate BP & HR: stable & adequate Hydration State: stable & adequate Neuraxial Anesthesia: was administered and sensory block is resolving Anesthetic Complications: no major complications apparent and Pt Satisfied with anesthetic care
[2025-01-29] MEDS ORDERED: METOCLOPRAMIDE HCL INJ 5 MG/ML 2 ML VIAL IV PRN (09:56)
[2025-01-29] MEDS ORDERED: bisacodyL 10 MG SUPP PR PRN (09:56)
[2025-01-29] MEDS ORDERED: oxyCODONE HCL IR 5 MG TAB (IMMEDIATE RELEASE) PO PRN (09:56)
[2025-01-29] MEDS ORDERED: NALOXONE HCL 0.4 MG/1 ML VIAL/CARP IV PRN (09:56)
[2025-01-29] MEDS ORDERED: HYDROmorphone INJ 0.5 MG/0.5 ML SYR IV PRN (09:56)
[2025-01-29] MEDS ORDERED: MAGNESIUM HYDROXIDE SUSP 30 ML UDC PO PRN (09:56)
[2025-01-29] MEDS: DOCUSATE SODIUM 100 MG CAP PO SCH (10:34)
--- NOTE | 2025-01-29 10:46 | Anesthesiology Progress Note ---
Date of Service January 29, 2025 Anesthesia Post Procedure Vital Signs Vital Signs: Temp Pulse Pulse Resp BP Pulse Ox O2 Del Method 01/29/25 10:32 36.4 C L 71 16 100/65 96 Room Air 01/29/25 10:05 36.4 C L 72 16 106/75 98 Room Air 01/29/25 09:56 36.3 C L 70 16 105/70 96 Room Air 01/29/25 09:30 64 12 113/69 96 Room Air 01/29/25 09:20 73 16 112/71 95 Room Air 01/29/25 09:10 36.4 C L 89 18 118/63 94 Room Air 01/29/25 09:00 71 16 114/69 95 Room Air 01/29/25 08:50 83 16 132/64 99 Oxymask 01/29/25 08:40 80 15 116/65 99 Oxymask 01/29/25 08:31 36.2 C L 87 10 L 117/66 96 Oxymask 01/29/25 05:43 36.9 C 81 18 128/79 99 Room Air O2 Flow Rate 01/29/25 10:32 01/29/25 10:05 01/29/25 09:56 01/29/25 09:30 01/29/25 09:20 01/29/25 09:10 01/29/25 09:00 01/29/25 08:50 3 01/29/25 08:40 6 01/29/25 08:31 6 01/29/25 05:43 Transfer of Care Handoff Completed per policy Notes Mental Status: alert / awake / arousable Patient Amnestic to Procedure: Yes Nausea / Vomiting: adequately controlled Pain: adequately controlled Airway Patency, RR, SpO2: stable & adequate BP & HR: stable & adequate Hydration State: stable & adequate Neuraxial Anesthesia: was administered and sensory block is resolving Anesthetic Complications: no major complications apparent and Pt Satisfied with anesthetic care
--- NOTE | 2025-01-29 10:49 | Fluoroscopy Report ---
FL hip RT 1V CLINICAL HISTORY: Right anterior total hip arthroplasty COMPARISON STUDY: None FLUOROSCOPY TIME: 12 seconds FLUOROSCOPY IMAGES: 2 EXPOSURE DOSE: 1.8 mGy FINDINGS: Fluoroscopy was provided for right hip prosthesis. IMPRESSION: Intraoperative fluoroscopy. ACT 112: Negative or not required by law. Electronically signed by: Gm Briseno M.D. 01/29/2025 10:47 AM
[2025-01-29] MEDS: MULTIVITAMIN TAB PO SCH (11:03)
[2025-01-29] MEDS: ASPIRIN 81 MG ECTAB PO SCH (11:03)
[2025-01-29] MEDS: ceFAZolin 2000MG 2,000 MG/15 ML SYR IV SCH (11:04)
[2025-01-29] MEDS: KETOROLAC TROMETHAMINE 15 MG/ML VIAL IV SCH (11:08)
[2025-01-29] MEDS: SENNA 8.6 MG TAB PO SCH (20:21)
[2025-01-30 05:46] VITALS: PULSE 65
--- NOTE | 2025-01-30 07:17 | Orthopedic Progress Note ---
Date of Service January 30, 2025 Assessment & Plan (1) Status post right hip replacement: Overall he is doing fairly well. He is not having much pain in the right hip. He will be seen by physical therapy today for ambulation and range of motion exercises. He is on aspirin for DVT prophylaxis. He can be discharged to home later today. He will follow-up with orthopedics in 2 weeks. Scarlet Lewis was seen and examined at bedside this morning. Overall is doing very well. He is not having much pain in the right hip. He has been up and ambulating to the bathroom. He has no complaints.. Review of Systems All systems reviewed & are unremarkable except as noted in HPI & below. Physical Exam On physical exam of the right hip, the dressing is clean and dry. His leg is out full extension. He has active dorsiflexion plantarflexion of his right ankle.. Results & Data Results & Data Laboratory Results . Diagnostic Findings Postoperative x-rays of the right hip show the prosthesis to be in anatomic alignment without any evidence of fracture complication, or loosening.. PG Care Time/CCT Total # of Minutes Spent Total Time Spent with Patient: Total time spent is greater than 50% in coordination of care (as documented) at patient's floor/unit and/or counseling patient: Coding Level of Care Code 98442 Post Operative Follow-Up Diagnoses Status post right hip replacement Z96.641
--- NOTE | 2025-01-30 07:18 | Discharge Summary ---
Date of Service January 30, 2025 Admission HPI (Per Admitting) Joshua is a pleasant 44-year-old male who underwent a left hip replacement about 4 months ago. He has done very well with that. Unfortunately he is dealing with a lot of right hip pain. X-rays and clinical exam have been diagnostic for advanced osteoarthritis of the right hip. After failing conservative treatment, he has elected proceed with a right anterior total of arthroplasty.. Admission Exam (Per Admitting) On physical exam of the right hip, he has decreased range of motion. He has pain with forced internal and external rotation. All of his pain is located in the groin.. Principal Diagnosis Same as "Discharge Diagnosis" noted below under Discharge Instructions. Discharge Exam On physical exam of the right hip, the dressing is clean and dry. His leg is out full extension. He has active dorsiflexion plantarflexion of his right ankle.. Discharge Data Procedures Performed Operation Date: 01/29/25 07:00 Actual Procedures p Right Anterior Total Hip Arthroplasty, Uncemented(Right) - Santi Caballero DO Ordered Studies 01/29/25 06:30 [place] hip RT 1V Routine Hospital Course (1) Status post right hip replacement: On January 29, 2025 Joshua arrived at [facility] and underwent a right hip replacement without complication. He had a spinal anesthetic. Postoperatively, he was started on aspirin for DVT prophylaxis and transferred to the general orthopedic floors. His hospital course was uneventful. On postop day #1, his vital signs were stable and his pain was well-controlled. He was able to participate well with physical therapy doing ambulation and range of motion exercises. He was then discharged to home. He will follow-up with orthopedics in 2 weeks. PG Care Time/CCT Total # of Minutes Spent Total Time Spent with Patient: Total time spent is greater than 50% in coordination of care (as documented) at patient's floor/unit and/or counseling patient: Discharge Plan Discharge Items Patient Disposition: Home - Self-Care Reason For Visit: Right Hip Arthritis Discharge Diagnosis: Right hip replacement Activity: Per Instructions section Non-emergency contact: Surgeon Call non-emergency contact if: your wound has increased redness and your wound has increased drainage Follow-up/Referrals: Amaya Trinidad CRNP [Primary Care Provider] - Diet: Regular Addtl Attending Provider Instructions: Activity and Therapy Recommendations: * If you are using [facility] then therapy will be provided at your home until they feel you have accomplished all of your goals. * If you are using [facility] then Physical Therapy will be provided until they feel you are ready to start Outpatient Physical Therapy. * If you are not using home therapy then Outpatient Physical Therapy should start about 3-5 days from your day of surgery. Therapy will last about 6-10 weeks * You were shown a series of exercises in the hospital. Do these exercises three times each day including the exercises you were shown in physical therapy. * Get up and walk several times each day.~ For the first four weeks, try not to stand or walk for more than one hour at a time. If you do stand or walk for more than one hour, you will not hurt anything, but your leg will likely swell.~~ * As you feel comfortable, you may change from the walker or crutches to a cane and~then to independent walking. Medications: * Narcotic You will likely be sent home from the hospital with a prescription for the narcotic pain medication that worked best throughout your stay. * Cefadroxil -take the antibiotic twice a day for 10 days to help prevent infection. * Aspirin Most patients will be required to take Aspirin 81mg twice a day for 6 weeks after surgery. This is obtained [id number] and a prescription is not necessary. * Other medications may be prescribed for specific circumstances. If you have any questions, please call the office at . * Resume previous home medications unless otherwise instructed TEDs/Elastic Stockings: The white elastic stockings help limit swelling and prevent blood clots from forming in your legs. The more you wear them, the more they work. Wear them for 2 weeks. Dressing Care: Leave the Silverlon dressing in place for 7 days. After 7 days you may remove the dressing. If the incision is not draining then you may leave the darvin open to air. If there is a little bit of drainage or if the darvin are getting stuck on your clothing then cover the incision with a dry dressing. The darvin will be removed at your 2 week follow-up appointment. Showering: You may shower with the Silverlon dressing in place. Do not let the shower spray hit the dressing directly. Pat the Silverlon dressing dry. If the dressing becomes wet underneath, then simply remove the dressing. Keep the incision dry until you are 7 days out from the day of surgery. After 7 days you may remove the Silverlon dressing and shower with the darvin exposed. Let soapy water run over the darvin and pat them dry. Do not scrub or soak the incision. Diet: You may resume your previous diet. Things To Watch For: * Drainage from the incision site that occurs more than one week after your surgery. * Increased redness at the incision site. * Fever above 102 degrees Fahrenheit. * Unusual chest pain or shortness of breath. * Call [facility] at with any of the above problems Follow-Up Visit: Follow-up with Dr. Caballero's office 2-3 weeks after your day of surgery. We will remove your darvin and answer any questions. If you have any additional questions or concerns, Dr Caballero is usually in the office at the same time and will be available An appointment was probably scheduled when you signed-up for surgery in the office. If you have any questions call Office Instructions: More detailed instructions as well as Frequently Asked Questions were provided in a folder by our office when you signed-up for surgery. Please review these instructions when you get home. If you have any further questions or concerns, please feel free to call the office at [phone] Pending Studies at Discharge: No Stand-Alone Forms: My [facility], Smoking Cessation Medications and DC Order Prescriptions: New cefadroxil 500 mg capsule 500 mg PO BID 10 Days Qty: 20 0RF oxycodone 5 mg tablet 5 mg PO Q6H PRN (Reason: pain) Qty: 30 0RF aspirin 81 mg Tablet,Delayed Release (Dr/Ec) 81 mg PO BID 42 Days Qty: 84 0RF Continued multivitamin Tablet 1 tab PO DAILY turmeric 400 mg Capsule 400 mg PO DAILY PRN (Reason: Inflammation) Discharge Orders: Discharge Order (Routine); Ordered 01/30/25 Ordered By: Santi Caballero Admission Data Admit Date/Time: 01/29/25 09:54 Attending Provider: Santi Caballero Admit Provider: Santi Caballero Primary Care Provider: Amaya Trinidad
[2025-01-30 07:33] VITALS: BP 109/69; RESP 20; TEMP 97.5; O2SAT 97
[2025-01-30] MEDS: dexAMETHasone 4 MG TAB PO SCH (08:50)
== END 2025-01-30 11:20 | disposition home or self-care (01) ==
LOC: 3W 05:41 → ASU 05:41